=== PATIENT | female | born 1970 | race Caucasian/White ===

== ENCOUNTER → 2017-02-20 | Outpatient (CLI) | payer BC, OTHER ==
[~2017-02-20] MED LIST: CHOL20009 PO; CPR500 PO; IBUP1CAP9 PO; LEVO100T7 PO; PRAS1CAP2 PO
== END | disposition home or self-care (01) ==
LOC: C.RDSM 11:53
PROVIDERS: ATTEND Physical Medicine & Rehabilitation
DX: M54.2 Cervicalgia (principal)